=== PATIENT | female | born 1930 | race Caucasian/White ===

== ENCOUNTER 2017-08-26 21:44 | Emergency (ER) | payer MEDICARE, OTHER ==
[~2017-08-26] VITALS: Ht 154.9 cm; Wt 45.4 kg
[~2017-08-26 21:44] MED LIST: ASPIRIN325 PO; ATACAND; ATACAND8 MG PO; BENTYL 10 MG CA10 MG PO; CARDIZEM CD240 MG PO; CELEXA10 MG PO; CIPROFLOXACIN500 M3 PO; COMBIVENT INH; DIAZEPAM 2MG TAB2 MG PO; DIAZEPAM 5 MG5 M1 PO; DOLGIC PLUS TA1 EACH PO; FLAGYL 250 MG250 MG PO; FLAGYL500 MG PO; FLONASE 0.05%50 MCG NASAL; HEADACHE RELIE1 EAC4 PO; HYDROCODON-ACE1 EAC7 PO; LIPITOR 10 MG10 M1 PO; MIRALAX255 GM PO; PRAVASTATIN SOD10 MG PO; PREDNISONE 10 M10 MG PO; VALIUM5 MG PO; VANQUISH CAPLE1 EACH; VERAPAMIL ER240 MG PO; XANAX 1 MG TABLE1 MG PO
[2017-08-26 22:41] LABS: ABSOLUTE BASOPHILS 0.1 thou/uL (0.0-0.2); ABSOLUTE EOSINOPHILS 0.2 thou/uL (0.0-0.7); ABSOLUTE LYMPHOCYTES 0.8 thou/uL (0.8-5.3); ABSOLUTE MONOCYTES 0.5 thou/uL (0.0-1.2); ABSOLUTE NEUTROPHILS 3.9 thou/uL (1.6-8.1); EOSINOPHILS 4.4 %; HEMATOCRIT 37.9 % (37.0-47.0); HEMOGLOBIN 12.6 gm/dL (12.0-15.0); LYMPHOCYTES 13.8 %; MCH 28.3 pg (26.0-34.0); MCHC 33.2 g/dL (28.0-37.0); MCV 85.1 fL (80.0-100.0); MONOCYTES 9.5 %; MPV 7.7 fl. (7.2-11.1); NUCLEATED RBCS 0 /100WBC; PLATELET COUNT* 127 thou/uL (150-400); POLYS 71.3 %; RBC 4.45 mil/uL (4.20-5.00); RDW-CV 14.7 % (10.5-14.5); WBC 5.5 thou/uL (4.0-11.0)
[2017-08-26 22:50] LABS: ANION GAP 7 mmol/L (7-16); BUN 16 mg/dL (7-18); CHLORIDE 102 mmol/L (98-107); CO2 28 mmol/L (21-32); CREATININE 1.1 mg/dL (0.6-1.3); GLUCOSE 138 mg/dL (70-99); POTASSIUM 4.5 mmol/L (3.5-5.1); SODIUM 137 mmol/L (136-145)
[2017-08-26 22:57] LABS: ALBUMIN 3.9 g/dL (3.4-5.0); ALKALINE PHOSPHATASE 101 U/L (46-116); SGOT 25 U/L (15-37); SGPT 26 U/L (30-65); TOTAL BILIRUBIN 0.2 mg/dL (<0.1-1.0); TOTAL PROTEIN 6.8 g/dL (6.4-8.2); TROPONIN-I LEVEL <0.06 ng/mL (<0.06)
[2017-08-27 02:35] VITALS: BP 155/78
== END 2017-08-27 02:35 | disposition home or self-care (01) ==
LOC: M.ERS 21:44
PROVIDERS: Emergency Medicine
DX: G43.909 Migraine, unspecified, not intractable, without status migrainosus (principal); I10 Essential (primary) hypertension; J44.9 Chronic obstructive pulmonary disease, unspecified; F32.9 Major depressive disorder, single episode, unspecified; F41.9 Anxiety disorder, unspecified; Z88.1 Allergy status to other antibiotic agents; Z88.0 Allergy status to penicillin; Z88.8 Allergy status to other drugs, medicaments and biological substances; Z87.891 Personal history of nicotine dependence; Z90.49 Acquired absence of other specified parts of digestive tract

== ENCOUNTER 2017-12-08 05:19 | Emergency (ER) | payer MEDICARE, OTHER ==
[~2017-12-08] VITALS: Ht 157.5 cm; Wt 45.4 kg
[2017-12-08 05:53] LABS: HEMATOCRIT 40.1 % (37.0-47.0); HEMOGLOBIN 13.2 gm/dL (12.0-15.0); MCH 28.4 pg (26.0-34.0); MPV 7.6 fl. (7.2-11.1); NUCLEATED RBCS 0 /100WBC; PLATELET COUNT* 138 thou/uL (150-400); RBC 4.66 mil/uL (4.20-5.00); RDW-CV 15.7 % (10.5-14.5); WBC 7.6 thou/uL (4.0-11.0)
[2017-12-08 06:12] LABS: CALCIUM 9.4 mg/dL (8.5-10.1); CREATININE 0.8 mg/dL (0.6-1.3)
[2017-12-08 06:14] LABS: ABSOLUTE LYMPHOCYTES 0.5 thou/uL (0.8-5.3); ABSOLUTE NEUTROPHILS 7.1 thou/uL (1.6-8.1)
[2017-12-08 06:15] LABS: ANISOCYTOSIS 1+; PLATELET ESTIMATE DECREASED; POIKILOCYTOSIS 1+
[2017-12-08 06:17] LABS: ALBUMIN 3.9 g/dL (3.4-5.0); TOTAL BILIRUBIN 0.6 mg/dL (<0.1-1.0); TOTAL PROTEIN 7.2 g/dL (6.4-8.2)
[2017-12-08 07:00] VITALS: BP 150/84
[2017-12-08] MEDS ORDERED: ZOFRAN ODT4 MG SUBLING (07:03)
== END 2017-12-08 07:00 | disposition home or self-care (01) ==
LOC: M.ERS 05:19
PROVIDERS: Family Medicine
DX: R51 Headache (principal); R11.2 Nausea with vomiting, unspecified; I10 Essential (primary) hypertension; J44.9 Chronic obstructive pulmonary disease, unspecified; I48.91 Unspecified atrial fibrillation; F41.9 Anxiety disorder, unspecified; F32.9 Major depressive disorder, single episode, unspecified; Z90.49 Acquired absence of other specified parts of digestive tract; Z88.1 Allergy status to other antibiotic agents; Z88.5 Allergy status to narcotic agent; Z88.0 Allergy status to penicillin; Z88.8 Allergy status to other drugs, medicaments and biological substances; Z87.891 Personal history of nicotine dependence

== ENCOUNTER → 2018-01-04 | Outpatient (CLI) | payer MEDICARE, OTHER ==
[~2018-01-04] MED LIST changes: +ZOFRAN ODT4 MG SUBLING
== END ==
LOC: M.RAD 16:43
DX: I70.0 Atherosclerosis of aorta (principal); M51.34 Other intervertebral disc degeneration, thoracic region; I10 Essential (primary) hypertension; I48.91 Unspecified atrial fibrillation; J44.9 Chronic obstructive pulmonary disease, unspecified

== ENCOUNTER → 2018-06-10 | Outpatient (CLI) | payer MEDICARE, OTHER | LOC: M.RAD 12:42 | DX: N64.59 Other signs and symptoms in breast (principal); R92.8 Other abnormal and inconclusive findings on diagnostic imaging of breast ==

== ENCOUNTER → 2019-01-18 | Outpatient (CLI) | payer MEDICARE, OTHER | LOC: M.RAD 15:37 | DX: M51.34 Other intervertebral disc degeneration, thoracic region (principal); R05 Cough; F17.210 Nicotine dependence, cigarettes, uncomplicated ==

== ENCOUNTER 2019-05-24 06:52 | Inpatient (IN) | payer MEDICARE, OTHER ==
[~2019-05-24] VITALS: Ht 154.9 cm; Wt 52.1 kg
[~2019-05-24 06:52] MED LIST changes: -VANQUISH CAPLE1 EACH; +VANQUISH CAPLE1 EACH PO
[2019-05-24 06:59] VITALS: BP 177/102
[2019-05-24 07:41] LABS: ABSOLUTE EOSINOPHILS 0.2 thou/uL (0.0-0.7); ABSOLUTE LYMPHOCYTES 0.9 thou/uL (0.8-5.3); ABSOLUTE MONOCYTES 0.7 thou/uL (0.0-1.2); ABSOLUTE NEUTROPHILS 5.6 thou/uL (1.6-8.1); BASOPHILS 0.6 %; EOSINOPHILS 3.1 %; HEMATOCRIT 40.2 % (37.0-47.0); HEMOGLOBIN 13.3 gm/dL (12.0-15.0); LYMPHOCYTES 12.5 %; MCH 27.9 pg (26.0-34.0); MCHC 33.1 g/dL (28.0-37.0); MCV 84.2 fL (80.0-100.0); MONOCYTES 8.9 %; NUCLEATED RBCS 0 /100WBC; PLATELET COUNT* 150 thou/uL (150-400); POLYS 74.9 %; RBC 4.77 mil/uL (4.20-5.00); RDW-CV 14.9 % (10.5-14.5); WBC 7.4 thou/uL (4.0-11.0)
[2019-05-24 07:45] LABS: CALCIUM 8.9 mg/dL (8.5-10.1); POTASSIUM 4.1 mmol/L (3.5-5.1)
[2019-05-24 07:50] LABS: ALBUMIN 4.1 g/dL (3.4-5.0); TOTAL BILIRUBIN 0.4 mg/dL (<0.1-1.0); TOTAL PROTEIN 7.4 g/dL (6.4-8.2)
[2019-05-24 08:39] LABS: URINE BILIRUBIN NEGATIVE (Negative); URINE BLOOD 1+ (Negative); URINE CLARITY CLEAR; URINE COLOR YELLOW; URINE GLUCOSE-RANDOM NEGATIVE (Negative); URINE KETONES NEGATIVE (Negative); URINE LEUKOCYTES-REFLEX NEGATIVE (Negative); URINE NITRITE-REFLEX NEGATIVE (Negative); URINE PROTEIN NEGATIVE (Negative); URINE UROBILINOGEN 0.2 E.U./dl (0.2-1.0)
[2019-05-24 09:00] LABS: BACTERIA-REFLEX 1-9 Few /HPF (None Seen); MUCUS None Seen strn/LPF (None Seen); SQUAMOUS 0-3 Few /LPF (0-3); URINE RBC 3-10 Few /HPF (0-2); URINE WBC-REFLEX 0-5 Rare /HPF (0-5)
[2019-05-24 09:01] LABS: CRYSTALS None Seen /LPF (None Seen); HYALINE CASTS 0-3 Few /LPF (None Seen)
[2019-05-24 10:41] VITALS: BP 155/91
--- NOTE | 2019-05-24 14:39 | EKG ---
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: MS : 1930 Requested By: Za Lopez Order Number: [id number] MD: Kenan Cramer Measurements Intervals [place] Rate: 88 P: MN: QRS: -42 QRSD: 91 T: 68 QT: 345 QTc: 418 Interpretive Statements Atrial fibrillation Inferior infarct, old Compared to ECG 07/22/2015 15:01:58 Sinus rhythm no longer present Atrial premature complex(es) no longer present Myocardial infarct finding still present Electronically Signed On 05-24-2019 14:38:24 MEDICAL BILLING SERVICE by Kenan Cramer [email or web address] <ELECTRONICALLY SIGNED> By: Kenan Cramer MD, FACC 05/24/19 1438 0911 Kenan Cramer MD, [facility] /EPI
[2019-05-24] MEDS ORDERED: NORCO 5-325 TA1 EAC1 PO (15:37)
[2019-05-24 16:40] VITALS: BP 160/90
--- NOTE | 2019-05-24 17:05 | NUR ---
ASSESSMENT COMPLETE. PT ALERT AND ORIENTED X4. PT ADMITTED WITH COLITIS. GI CONSULT. IV ROCEPHIN AND FLAGYL GIVEN. IV FLUIDS INFUSING. NORCO GIVEN ONCE FOR PAIN. PT IS ON ROOM AIR, VSS. PT IS FALL RISK, BED ALARM ON. UP ONE ASSIST TO BATHROOM. SEE ASSESSMENT AND VITALS FOR OTHER DETAILS. CALL LIGHT WITHIN REACH, WILL CONTINUE PLAN OF CARE
[2019-05-24 20:18] VITALS: BP 144/85
[2019-05-24 21:30] VITALS: BP 137/81
[2019-05-24 23:56] VITALS: BP 118/68
--- NOTE | 2019-05-25 00:01 | NUR ---
ASSUMED CARE OF PATIENT AT BEGINNING OF SHIFT. WENT IN TO GET A SET OF VITALS PATIENT HEART RATE WAS JUMPING ON ALL AROUND ON THE PULSE OX AND GOING UP TO 130'S AND 140'S. EKG WAS DONE AND SHOWED AFIB WITH HR OF 131. DOCTOR VALENTIN WAS PAGED AND ORDERS WERE RECIEVED TO TRANSFER TO TELE. REPORT WAS GIVEN TO DIVINA FULLER. PATIENT WAS TRANSERED DOWN BY BED WITH HER BELONGINGS AT ABOUT 2100.
[2019-05-25 04:09] VITALS: BP 136/73
--- NOTE | 2019-05-25 05:28 | NUR ---
RECEIVED REPORT FROM KYRA MURCIA. PT TRANSFERRED TO 206. PT A&OX4. VSS. PHYSICAL ASSESSMENT COMPLETED AND CHARTED. O2 SAT 87-90%- HOOKED TO O2 VIA NC AT 2L. PT TRACING AFIB 60-90'S. PT UPSTANDBY TO RESTROOM. PT COMPLAINED OF SLIGHT HEADACHE BUT REFUSED PAIN MEDS. ANXIETY MEDICATION GIVEN. PT ABLE TO SLEEP WELL ON BED. CALL LIGHT WITHIN REACH.
[2019-05-25 05:37] LABS: ABSOLUTE EOSINOPHILS 0.2 thou/uL (0.0-0.7); ABSOLUTE LYMPHOCYTES 0.9 thou/uL (0.8-5.3); ABSOLUTE MONOCYTES 0.7 thou/uL (0.0-1.2); ABSOLUTE NEUTROPHILS 4.3 thou/uL (1.6-8.1); BASOPHILS 0.8 %; EOSINOPHILS 2.8 %; HEMOGLOBIN 10.8 gm/dL (12.0-15.0); LYMPHOCYTES 15.5 %; MCH 28.4 pg (26.0-34.0); MCHC 33.8 g/dL (28.0-37.0); MCV 84.1 fL (80.0-100.0); MONOCYTES 10.8 %; MPV 8.5 fl. (7.2-11.1); NUCLEATED RBCS 0 /100WBC; PLATELET COUNT* 118 thou/uL (150-400); POLYS 70.1 %; RBC 3.81 mil/uL (4.20-5.00); RDW-CV 14.5 % (10.5-14.5); WBC 6.1 thou/uL (4.0-11.0)
[2019-05-25 06:02] LABS: CALCIUM 7.6 mg/dL (8.5-10.1); CREATININE 0.8 mg/dL (0.6-1.3); POTASSIUM 3.9 mmol/L (3.5-5.1); TOTAL BILIRUBIN 0.4 mg/dL (<0.1-1.0); TOTAL PROTEIN 5.6 g/dL (6.4-8.2)
[2019-05-25 08:00] VITALS: BP 113/61
[2019-05-25 12:00] VITALS: BP 115/58
--- NOTE | 2019-05-25 15:01 | EKG ---
[place] [address] ELECTROCARDIOGRAM REPORT Name: JEAN MALHOTRA Room: [address] ADM IN .R.#: [id number] Admission: 05/24/19 Attend Phys: Tasha Fleming Discharge: Date of : 30 Report #: [id number] THIS REPORT FOR: //name// 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 : 1930 Requested By: Thai Jimenes Order Number: [id number] MD: Brian Vinson Measurements Intervals [place] Rate: 131 P: CT: QRS: -52 QRSD: 84 T: 67 QT: 321 QTc: 474 Interpretive Statements Atrial fibrillation RSR' in V1 or V2, right VCD or RVH Inferior infarct, old possible Compared to ECG 05/24/2019 09:11:45 RSR' in V1 or V2 now present Myocardial infarct finding still present Electronically Signed On 05-25-2019 15:01:16 CARDIOLOGY PHYSICIAN by Brian Vinson [email or web address] <ELECTRONICALLY SIGNED> By: Brian Vinson MD, [facility] 05/25/19 1501 20 20 Brian Vinson MD, [facility] /EPI
--- NOTE | 2019-05-25 15:06 | NUR ---
Pt sound asleep when CM went to assess, will f/u later
[2019-05-25 16:00] VITALS: BP 120/59
--- NOTE | 2019-05-25 19:34 | NUR ---
VSS, CONTROLLED AFIB ON TELE, A&OX4, BASELINE ANXIETY, NC@0.5L, SBA, HOURLY ROUNDING PERFORMED, POSSESSIONS AND CALL LIGHT WITHIN REACH. CLEAR LIQUID DIET
[2019-05-25 20:00] VITALS: BP 145/78
[2019-05-25 23:34] VITALS: BP 120/63
[2019-05-26 04:03] VITALS: BP 135/74
[2019-05-26 04:31] LABS: ABSOLUTE BASOPHILS 0.1 thou/uL (0.0-0.2); ABSOLUTE EOSINOPHILS 0.2 thou/uL (0.0-0.7); ABSOLUTE LYMPHOCYTES 0.7 thou/uL (0.8-5.3); ABSOLUTE MONOCYTES 0.6 thou/uL (0.0-1.2); ABSOLUTE NEUTROPHILS 4.3 thou/uL (1.6-8.1); BASOPHILS 0.9 %; EOSINOPHILS 3.6 %; HEMATOCRIT 30.4 % (37.0-47.0); HEMOGLOBIN 10.2 gm/dL (12.0-15.0); LYMPHOCYTES 11.6 %; MCH 28.2 pg (26.0-34.0); MCHC 33.4 g/dL (28.0-37.0); MCV 84.4 fL (80.0-100.0); MONOCYTES 10.5 %; MPV 8.2 fl. (7.2-11.1); NUCLEATED RBCS 0 /100WBC; PLATELET COUNT* 103 thou/uL (150-400); POLYS 73.4 %; RDW-CV 14.9 % (10.5-14.5); WBC 5.9 thou/uL (4.0-11.0)
[2019-05-26 04:49] LABS: CALCIUM 7.6 mg/dL (8.5-10.1); CREATININE 0.8 mg/dL (0.6-1.3); POTASSIUM 3.7 mmol/L (3.5-5.1)
--- NOTE | 2019-05-26 05:49 | NUR ---
ASSUMED CARE OF PT AFTER REPORT AT 1930. PT A&OX4. VSS. PHYSICAL ASSESSMENT COMPLETED AND CHARTED.PT O2 SAT 87-89%-INCREASED O2 TO 2L NC. PT TRACING AFIB ON TELE. PT UPSTANDBY TO RESTROOM. PT DENIES PAIN. PT REFUSED TRAZODONE EVEN AFTER EDUCATION AND CARE NOTES WERE GIVEN. CALL LIGHT WITHIN REACH.
[2019-05-26 08:00] VITALS: BP 146/78
--- NOTE | 2019-05-26 11:13 | NUR ---
Nutrition: Pt admit with recent onset abd pain, rectal bleeding. Hx of IBD which limits po intake and activites. Pt is underweight w/ BMI of 17. Pt tolerating clear liquids, receiving Ensure clear. Albumin 3.0, was WNL initially. Steriods and other meds reviewed. Plan for flex sig in am. Assess at mild nutrition risk; RD to follow up 05/31.
--- NOTE | 2019-05-26 12:55 | CON ---
[address] [address] CONSULTATION Name: JEAN MALHOTRA Room: [address] IN .R.#: [id number] Admission: 05/24/19 Attend Phys: Tasha Fleming Discharge: Date of : 30 Report #: [id number] THIS REPORT FOR: //name// CC: Carmita Jimenes DICTATED BY: Renetta Rangel [facility] DATE OF SERVICE: 05/24/2019 Please note at the time of this dictation, the patient was seen and physically examined by myself. REASON FOR CONSULTATION: Abdominal pain, rectal bleeding and some diarrhea. HISTORY OF PRESENT ILLNESS: This is an 89-year-old female who states she started having abrupt onset of abdominal pain with rectal bleeding yesterday, with a lot of cramping that got progressively worse. 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 She has had another bout prior to this. The patient states her bowels normally move every day. She states soft and formed and once a while, she will have some issues or she does not go and she will take some MiraLax to help her go. She now is complaining that she is having some diarrhea. She did have an EGD back in 2015 that was completely normal. ALLERGIES: PENICILLIN, QUINOLONES, CLINDAMYCIN, CIPROFLOXACIN, NABUMETONE, AND MOXIFLOXACIN. MEDICATIONS: From home include Combivent, Vanquish tablet, Atacand, Cardizem, Dologesic plus tablet, and Valium. PAST MEDICAL HISTORY: Hypertension, COPD, TIA, history of a cerebral aneurysm, atrial fibrillation, history of vertigo, history of colitis, anxiety and depression. PAST SURGICAL HISTORY: Knee surgery, cholecystectomy. FAMILY HISTORY: Noncontributory. SOCIAL HISTORY: Past history of tobacco use. Denies any alcohol or illegal drug use. REVIEW OF SYSTEMS: Twelve-point review [place] [address] CONSULTATION Name: JEAN MALHOTRA Room: [address] IN [facility]#: [id number] Admission: 05/24/19 Attend Phys: Tasha Fleming Discharge: Date of : 30 Report #: [id number] except what is mentioned in the HPI. PHYSICAL EXAMINATION: VITAL SIGNS: Temperature 36.8, pulse 100, respirations 16, blood pressure 155/91. HEART: Regular rate and rhythm. LUNGS: Clear. ABDOMEN: Soft, positive bowel sounds in all 4 quadrants with some slight abdominal pain noted on the left side. LABORATORY DATA: Hemoglobin 13.3, white count 7.4, platelets 150. GFR is 52. CT showed severe segmental colonic wall thickening from the proximal descending to sigmoid. IMPRESSION: 1. Abdominal pain, improved. 2. Constipation. 3. Bright red blood, resolved. 4. Abnormal CT. PLAN: 1. Give her Dulcolax tablets. 2. Senna b.i.d. 3. Symptoms have improved since having a BM. 4. Clear liquids. 5. We will consider a flexible sigmoidoscopy after Dr. Castanon sees the patient later today. 6. The patient will need to be on a better bowel regimen upon discharge. 7. Continue antibiotics. Thank you for allowing us to participate in this patient's care. Please do not hesitate to call with any questions in regard to this consult. <ELECTRONICALLY SIGNED> By: Drew Castanon MD 05/26/19 1255 1156 1430Drew Castanon MD /nt
[2019-05-26 12:58] VITALS: BP 155/85
--- NOTE | 2019-05-26 15:00 | NUR ---
Pt is A&O. Resides at home alone. Independent, dtr does a deep clean every 3-4 weeks, Pt continues to drive short distances. No DME. No home o2. No hx of HH or SNF. Pt to have flex sig tomorrow. Goal is home at dc, no needs anticipated.
[2019-05-26 16:22] VITALS: BP 158/71
--- NOTE | 2019-05-26 20:17 | NUR ---
VSS, AFIB ON TELE, A&OX4, PATIENT VERY ANXIOUS. NC@2L, UP WITH ASSIST, NPO AT MIDNIGHT. HOURLY ROUNDING PERFORMED, POSSESIONS AND CALL LIGHT WITHIN REACH.
[2019-05-26 21:30] VITALS: BP 157/84
[2019-05-27 00:11] VITALS: BP 141/69
[2019-05-27 04:09] VITALS: BP 101/74
[2019-05-27 04:42] LABS: ABSOLUTE LYMPHOCYTES 0.6 thou/uL (0.8-5.3); BASOPHILS 0.1 %; HEMATOCRIT 35.6 % (37.0-47.0); HEMOGLOBIN 11.9 gm/dL (12.0-15.0); LYMPHOCYTES 6.7 %; MCH 28.3 pg (26.0-34.0); MCHC 33.5 g/dL (28.0-37.0); MCV 84.7 fL (80.0-100.0); MPV 7.7 fl. (7.2-11.1); NUCLEATED RBCS 0 /100WBC; PLATELET COUNT* 144 thou/uL (150-400); POLYS 83.2 %; RBC 4.21 mil/uL (4.20-5.00); RDW-CV 14.8 % (10.5-14.5); WBC 9.6 thou/uL (4.0-11.0)
[2019-05-27 04:54] LABS: ALBUMIN 3.4 g/dL (3.4-5.0); CALCIUM 8.5 mg/dL (8.5-10.1); POTASSIUM 4.2 mmol/L (3.5-5.1); TOTAL BILIRUBIN 0.4 mg/dL (<0.1-1.0); TOTAL PROTEIN 6.2 g/dL (6.4-8.2)
--- NOTE | 2019-05-27 05:00 | NUR ---
RECEIVED REPORT FROM DIVINA ZUNIGA AT 0230. PT RESTING WITH EYES CLOSED. AFIB ON SCIENTIFIC INFORMATICS LEADER. VOICES NO CONCERNS THIS SHIFT. CLEAR BM THIS AM. HOURLY ROUNDING COMPLETED. CALL LIGHT WITHIN REACH. NPO FOR PROCEDURE.
--- NOTE | 2019-05-27 11:20 | NUR ---
Possible dc to home today post flex sig. Spoke with Pt and dtr, Pt in agreement with HH and want to use [facility] to fax referral once available. Following. Nitin p:[phone] f:[phone]
[2019-05-27] MEDS ORDERED: FLAGYL500 M1 PO (13:46)
[2019-05-27] MEDS ORDERED: SENNA-TIME S T1 EACH PO (13:46)
[2019-05-27 14:35] VITALS: BP 101/74
--- NOTE | 2019-05-27 20:32 | NUR ---
VSS, AFIB ON TELE, A&OX4, SBA, NC@2L, HOURLY ROUNDING PERFORMED, POSSESSIONS AND CALL LIGHT WITHIN REACH. POST COLONOSCOPY REC DISCHARGE ORDERS, REVIEWED WITH PATIENT AND DAUGHTER, REMOVED IV WITHOUT COMPLICATION, TELE MONITOR REMOVED. PATIENT TAKEN BY WHEELCHAIR TO FRONT DOOR AND PICKED UP BY DAUGHTER IN FAMILY CAR.
--- NOTE | 2019-05-31 16:06 | PATH ---
[facility] [address] [place] [address] PATHOLOGY RPT PROCEDURE Name: YANE MALHOTRA Room: [address] IN M.R.#: [id number] Admission: 05/24/19 Date of : 30 Discharge: 05/27/19 Report #: [id number] Path Case #: [id number] [facility] Accession Number: [id number] . 01 Material submitted: . colon - RANDOM COLON . 01 Clinical history: . R/O colitis . 02 Diagnosis: Random colon biopsy: - Focal fresh hemorrhage in otherwise normal colonic mucosa. . (SUZETTE:mml; 05/31/2019) [facility] 05/31/2019 1020 Local . 02 Electronically signed: . Gregory Leonard MD, Pathologist NPI- [id number] . 01 Gross description: . The specimen is received in formalin, labeled "Yane Lewis, random colon biopsy". Received are seven segments of pale madrid soft tissue ranging in size from 0.3 to 0.6 cm in maximum dimensions. The specimen is submitted entirely in cassette A1. (CAA; 05/30/2019) QAC/QAC 05/30/2019 1200 Local . 02 Pathologist provided ICD-10: J18.9, J96.01 . 02 CPT . 056512 Specimen Comment: A courtesy copy of this report has been sent to [phone] Specimen Comment: Report sent to Performed at: [address] [facility], [place], [place] [id number] MD Sherman Artis MD Phone: [phone] Performed at: [address] [address] [address], [place], [place] [id number] MD Gregory Leonard MD Phone: [phone]
== END 2019-05-27 18:50 | disposition home health service (06) | DRG 372 ==
LOC: M.ERS 06:52 → M.TBA-ER 10:06 → M.3W 10:06 → M.2W 10:06 → M.3W 11:00 → M.2W 21:37
PROVIDERS: Personal Emergency Response Attendant; ADMIT Internal Medicine
PROC: 0DBN8ZX Excision of Sigmoid Colon, Via Natural or Artificial Opening Endoscopic, Diagnostic (ICD-10-PCS; principal; 2019-05-27)
DX: A04.9 Bacterial intestinal infection, unspecified (principal); K92.1 Melena; E44.1 Mild protein-calorie malnutrition; K55.9 Vascular disorder of intestine, unspecified; K64.8 Other hemorrhoids; K59.00 Constipation, unspecified; K63.89 Other specified diseases of intestine; I10 Essential (primary) hypertension; J44.9 Chronic obstructive pulmonary disease, unspecified; I67.1 Cerebral aneurysm, nonruptured; I48.91 Unspecified atrial fibrillation; F41.9 Anxiety disorder, unspecified; F32.9 Major depressive disorder, single episode, unspecified; Z90.49 Acquired absence of other specified parts of digestive tract; Z79.891 Long term (current) use of opiate analgesic; Z79.899 Other long term (current) drug therapy; Z79.01 Long term (current) use of anticoagulants; Z90.89 Acquired absence of other organs; Z88.1 Allergy status to other antibiotic agents; Z88.0 Allergy status to penicillin; Z88.8 Allergy status to other drugs, medicaments and biological substances; Z87.891 Personal history of nicotine dependence; Z68.21 Body mass index [BMI] 21.0-21.9, adult

== ENCOUNTER 2019-05-29 06:02 | Inpatient (IN) | payer MEDICARE, OTHER ==
[~2019-05-29] VITALS: Ht 152.4 cm; Wt 48.7 kg
[~2019-05-29 06:02] MED LIST changes: +FLAGYL500 M1 PO; +NORCO 5-325 TA1 EAC1 PO; +SENNA-TIME S T1 EACH PO
[2019-05-29 06:03] VITALS: BP 159/93
[2019-05-29 06:34] LABS: HEMATOCRIT 37.8 % (37.0-47.0); HEMOGLOBIN 12.7 gm/dL (12.0-15.0); MCH 28.1 pg (26.0-34.0); MCHC 33.5 g/dL (28.0-37.0); MCV 83.8 fL (80.0-100.0); NUCLEATED RBCS 0 /100WBC; PLATELET COUNT* 154 thou/uL (150-400); RBC 4.52 mil/uL (4.20-5.00); WBC 14.2 thou/uL (4.0-11.0)
[2019-05-29 06:39] LABS: CALCIUM 8.1 mg/dL (8.5-10.1); CREATININE 0.8 mg/dL (0.6-1.3); POTASSIUM 3.1 mmol/L (3.5-5.1)
[2019-05-29 06:47] LABS: ALBUMIN 3.8 g/dL (3.4-5.0); MAGNESIUM 1.6 mg/dL (1.8-2.4); TOTAL BILIRUBIN 0.5 mg/dL (<0.1-1.0); TOTAL PROTEIN 6.8 g/dL (6.4-8.2)
[2019-05-29 06:58] LABS: ABSOLUTE MONOCYTES 0.4 thou/uL (0.0-1.2); ABSOLUTE NEUTROPHILS 12.8 thou/uL (1.6-8.1); PLATELET ESTIMATE ADEQUATE
[2019-05-29 07:04] LABS: BE 0.3 mmol/L (-2 to +3); PCO2 37.6 mmHg (35.0-45.0); PO2 63.9 mmHg (75.0-100.0)
[2019-05-29 07:30] LABS: INFLUENZA A ANTIGEN Negative (Negative); INFLUENZA B ANTIGEN Negative (Negative)
[2019-05-29 08:11] LABS: URINE BILIRUBIN NEGATIVE (Negative); URINE BLOOD 2+ (Negative); URINE CLARITY CLEAR; URINE COLOR YELLOW; URINE GLUCOSE-RANDOM NEGATIVE (Negative); URINE KETONES 1+ (Negative); URINE LEUKOCYTES-REFLEX NEGATIVE (Negative); URINE NITRITE-REFLEX NEGATIVE (Negative); URINE PROTEIN 1+ (Negative); URINE UROBILINOGEN 0.2 E.U./dl (0.2-1.0)
[2019-05-29 08:23] LABS: BACTERIA-REFLEX 1-9 Few /HPF (None Seen); CRYSTALS None Seen /LPF (None Seen); HYALINE CASTS 0-3 Few /LPF (None Seen); MUCUS None Seen strn/LPF (None Seen); SQUAMOUS 0-3 Few /LPF (0-3); URINE RBC 3-10 Few /HPF (0-2); URINE WBC-REFLEX 0-5 Rare /HPF (0-5)
[2019-05-29 08:32] VITALS: BP 127/85
[2019-05-29 08:50] VITALS: BP 142/88
[2019-05-29 11:52] LABS: CALCIUM 7.4 mg/dL (8.5-10.1); CREATININE 0.7 mg/dL (0.6-1.3); MAGNESIUM 1.6 mg/dL (1.8-2.4); POTASSIUM 3.1 mmol/L (3.5-5.1)
[2019-05-29 12:33] VITALS: BP 131/72
--- NOTE | 2019-05-29 14:02 | EKG ---
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: : 1930 Requested By: Za Lopez Order Number: [id number] MD: Brian Vinson Measurements Intervals [place] Rate: 120 P: [place]: QRS: 18 QRSD: 88 T: 12 QT: 312 QTc: 441 Interpretive Statements Atrial fibrillation rare pvc Probable anterior infarct, age indeterminate Compared to ECG 05/24/2019 20:21:24 Right ventricular hypertrophy no longer present Myocardial infarct finding still present Electronically Signed On 05-29-2019 14:01:16 SOCIALLY RESPONSIBLE INVESTMENT ADVISER by Brian Vinson [email or web address] <ELECTRONICALLY SIGNED> By: Brian Vinson MD, [facility] 05/29/19 1401 0609 0609 Brian Vinson MD, [facility] /EPI
[2019-05-29 15:05] LABS: CALCIUM 7.3 mg/dL (8.5-10.1); CREATININE 0.7 mg/dL (0.6-1.3); POTASSIUM 3.1 mmol/L (3.5-5.1)
[2019-05-29 17:04] VITALS: BP 142/69
[2019-05-29 19:50] VITALS: BP 130/73
[2019-05-29 21:31] LABS: MAGNESIUM 1.5 mg/dL (1.8-2.4); POTASSIUM 3.6 mmol/L (3.5-5.1)
[2019-05-30] VITALS: BP 134/84
[2019-05-30 03:38] VITALS: BP 161/96
[2019-05-30 06:00] LABS: HEMATOCRIT 31.5 % (37.0-47.0); MCHC 34.8 g/dL (28.0-37.0); MCV 83.5 fL (80.0-100.0); MPV 8.6 fl. (7.2-11.1); RBC 3.78 mil/uL (4.20-5.00); RDW-CV 14.4 % (10.5-14.5); WBC 7.2 thou/uL (4.0-11.0)
[2019-05-30 06:14] LABS: ALBUMIN 3.1 g/dL (3.4-5.0); CALCIUM 7.4 mg/dL (8.5-10.1); CREATININE 0.8 mg/dL (0.6-1.3); MAGNESIUM 2.3 mg/dL (1.8-2.4); POTASSIUM 3.6 mmol/L (3.5-5.1); TOTAL BILIRUBIN 0.5 mg/dL (<0.1-1.0); TOTAL PROTEIN 5.7 g/dL (6.4-8.2)
--- NOTE | 2019-05-30 07:04 | NUR ---
PT CARE ASSUMED AT 1930. SAT MAINTAINED IN O2. ALERT AND ORIENTED X4. CALL LIGHT WITHIN REACH AND BED IN LOW POSITION. C/O PAIN, MEDICATION GIVEN PER EMAR. HOURLY ROUNDING DONE FOR PT SAFETY.
[2019-05-30 08:00] VITALS: BP 142/95
[2019-05-30 12:00] VITALS: BP 151/104
--- NOTE | 2019-05-30 13:24 | NUR ---
Pt is A&O. Known to this CM from hospital stay last week. Pt dc to home with [facility] last Thursday, CM updated [facility] on re-admit. Pt resides at home alone. Independent. No hx of SNF. Goal is home at dc. Following.
--- NOTE | 2019-05-30 15:20 | 2DMMODE ---
[place] [address] 2 D/M-MODE ECHOCARDIOGRAM Name: JEAN MALHOTRA Room: [facility] ADM IN [facility]#: [id number] Admission: 05/29/19 Attend Phys: Marianne Dennison, Discharge: Date of : 30 Date of Service: 05/30/19 1519 Report #: [id number] THIS REPORT FOR: //name// APPROVED REPORT Study performed: 05/30/2019 11:14:38 EXAM: Comprehensive 2D, Doppler, and color-flow Echocardiogram Patient Location: In-Patient Room #: [facility] BSA: 1.33 HR: 95 bpm BP: 142/95 mmHg Other Information Study Quality: Good Indications COPD R/O CHF 2D Dimensions IVSd: 6.73 (7-11mm) LVOT Diam: 19.48 (18-24mm) LVDd: 32.24 mm PWd: 5.49 (7-11mm) Ascending Ao: 25.77 (22-36mm) LVDs: 18.31 (25-40mm) Aortic Root: 21.13 mm Volumes Left Atrial Volume (Systole) LA ESV Index: 34.30 mL/m2 Aortic Valve AoV Peak Chaz.: 0.95 m/s AO Peak Gr.: 3.64 mmHg LVOT Max P.27 mmHg AO Mean Gr.: 1.88 mmHg LVOT Mean P.41 mmHg LVOT Max V: 0.90 m/s AO V2 VTI: 14.75 cm LVOT Mean V: 0.53 m/s SHIRA (VTI): 3.35 cm2 LVOT V1 VTI: 16.57 cm Mitral Valve E/A Ratio: 4.11 MV Decel. Time: 122.24 ms MV E Max Chaz.: 0.94 m/[place] [address] 2 D/M-MODE ECHOCARDIOGRAM Name: JEAN MALHOTRA Room: [address] IN ..#: [id number] Admission: 05/29/19 Attend Phys: Marianne Dennison, Discharge: Date of : 30 Date of Service: 05/30/19 1519 Report #: [id number] MV PHT: 35.45 ms MVA (PHT): 6.21 cm2 TDI E/Lateral E': 9.40 E/Medial E': 11.75 Medial E' Chaz.: 0.08 m/s Lateral E' Chaz.: 0.10 m/s Pulmonary Valve PV Peak Chaz.: 0.71 m/s PV Peak Gr.: 2.03 mmHg Tricuspid Valve RAP Estimate: 5.00 mmHg TR Peak Gr.: 27.62 mmHg RVSP: 32.62 mmHg PA Pressure: 32.62 mmHg Left Ventricle The left ventricle is normal size. There is normal LV segmental wall motion. There is normal left ventricular wall thickness. Left ventricular systolic function is normal. The left ventricular ejection fraction is within the normal range. LVEF is 65-70%. This study is not technically sufficient to allow evaluation of the LV diastolic function due to atrial fibrillation. Right Ventricle The right ventricle is normal size. The right ventricular systolic function is normal. Atria Left atrium is mildly dilated. The right atrium size is normal. Aortic Valve The Aortic valve is sclerotic. No aortic regurgitation is present. There is no aortic valvular stenosis. Mitral Valve The mitral valve is normal in structure. Moderate mitral regurgitation. No evidence of mitral valve stenosis. Tricuspid Valve The tricuspid valve is normal in structure. Mild tricuspid regurgitation. estimated pa pressure 35 mm Hg Pulmonic Valve Pulmonic valve is not well visualized. There [place] [address] 2 D/M-MODE ECHOCARDIOGRAM Name: JEAN MALHOTRA Room: [address] IN [facility]#: [id number] Admission: 05/29/19 Attend Phys: Marianne Dennison, Discharge: Date of : 30 Date of Service: 05/30/19 1519 Report #: [id number] regurgitation. Great Vessels The aortic root is normal in size. IVC is normal in size and collapses >50% with inspiration. Pericardium There is no pericardial effusion. Small left pleural effusion. <Conclusion> LVEF is 65-70%. Left atrium is mildly dilated. Moderate mitral regurgitation. <ELECTRONICALLY SIGNED> By: Trevor Zhang MD, FACC 05/30/19 [phone] Trevor Zhang MD, FACC /INF
--- NOTE | 2019-05-30 15:28 | NUR ---
Nutrition: pt risk for wt loss of 7 lb from last weeks admit and decreased po intake related to chronic IBD. Question accuracy of prior wt's 90-100# (appear to be stated wt's) vs current wt of 107 lb and last week at 114 lb. Albumin 3.1 was 3.8 initally. Meds reviewed. Pt was with other staff at visits; pt was on a supplements last week; requested supplement be low-sugar. No intake records. Assess at mild nutrition risk. Will order Glucerna BID. RD to follow up on intake and further needs 05/31/19.
[2019-05-30 16:00] VITALS: BP 123/73
--- NOTE | 2019-05-30 19:25 | NUR ---
ASSUSMED CARE OF PT APPROX 0730. REASSESSMENT COMPLETED CHARTED. MEDICATIONS GIVEN CHARTED. DISCUSSED CARE WITH PT AND DAUGHTER, VERBALIZED UNDERSTANDING. PT UP TO BEDSIDE CAMODE WITH STAND BY ASSISTANCE. PT CALLS OUT FOR NEEDS. SAFTEY PRECAUTIONS UTILIZED AND HOURLY ROUNDED.
[2019-05-30 20:00] VITALS: BP 116/60
[2019-05-31 00:54] VITALS: BP 123/68
[2019-05-31 04:00] VITALS: BP 140/74
--- NOTE | 2019-05-31 05:26 | NUR ---
PT CARE ASSUMED AT 1930. SAT MAINTAINED IN 02. SOB WITH EXERTION. C/O PAIN, MEDICATION GIVEN PER EMAR. ALERT AND ORIENTED X4. CALL LIGHT WITHIN REACH AND BED IN LOW POSITION. HOURLY ROUNDING DONE FOR PT SAFETY.
--- NOTE | 2019-05-31 07:15 | NUR ---
CHANGE OF SHIFT BEDSIDE REPORT GIVEN PATIENT SEEN AT BEDSIDE, IN BED ASLEEP ASSUMED PATIENT CARE
[2019-05-31 08:00] VITALS: BP 122/77
--- NOTE | 2019-05-31 09:35 | NUR ---
MET WITH PT AND DTR BRIDGER IN THE ROOM. PT STATES SHE WOULD LIKE TO DO SNU UNTIL SHE GETS HER STRENGTH BACK THEN SHE WOULD LIKE TO GO TO ASSISTED LIVING. SHE AND DTR HAVE STARTED TO LOOK AT A FEW ASSISTED LIVING FACILITIES BUT ARE OVERWHELMED. WILL GIVE INFO RE ASSISTED LIVING FACILITIES IN THE AREA.STATES THE ONLY PREFERENCE THAT SHE HAS FOR SNU IS THERE CANNOT BE AN ELEVATOR SHE HAS AN ELEVATOR PHOBIA AND SHE HAS TO BE ABLE TO CHOOSE HER FOOD SHE EATS A SPECIAL DIET. DTR WOULD LIKE PT TO REMAIN CLOSE. WILL FAX PAPERWORK TO [facility] AND [facility]
[2019-05-31 11:52] LABS: ABSOLUTE EOSINOPHILS 0.3 thou/uL (0.0-0.7); ABSOLUTE LYMPHOCYTES 1.1 thou/uL (0.8-5.3); ABSOLUTE MONOCYTES 0.7 thou/uL (0.0-1.2); ABSOLUTE NEUTROPHILS 6.3 thou/uL (1.6-8.1); BASOPHILS 0.5 %; EOSINOPHILS 3.7 %; HEMATOCRIT 31.8 % (37.0-47.0); HEMOGLOBIN 10.5 gm/dL (12.0-15.0); LYMPHOCYTES 13.2 %; MCH 28.3 pg (26.0-34.0); MCV 85.6 fL (80.0-100.0); MONOCYTES 8.3 %; NUCLEATED RBCS 0 /100WBC; PLATELET COUNT* 122 thou/uL (150-400); POLYS 74.3 %; RBC 3.71 mil/uL (4.20-5.00); RDW-CV 14.9 % (10.5-14.5); WBC 8.4 thou/uL (4.0-11.0)
[2019-05-31 12:10] LABS: CALCIUM 7.9 mg/dL (8.5-10.1); CREATININE 0.8 mg/dL (0.6-1.3); POTASSIUM 3.4 mmol/L (3.5-5.1)
--- NOTE | 2019-05-31 12:15 | NUR ---
[facility] ACCEPTED PT FOR ADMISSION TOMORROW. WILL NEED PT/OT NOTES WHEN AVAILABLE. CM TO CALL ELIJAH AT [facility] WHEN DC ORDERS RECEIVED TO FACILITATE TRANSPORT. DTR AND PT AWARE
--- NOTE | 2019-05-31 12:20 | NUR ---
Nutrition: follow up note. Pt "eats a special diet" at home. Glucerna is ordered for added oral intake. BG is WNL, alb 3.1. Wt stable at 107#. Continue at mild risk. Will follow up per protocol.
[2019-05-31 17:41] VITALS: BP 124/71
[2019-05-31 19:50] VITALS: BP 146/88
[2019-06-01] VITALS: BP 132/63
[2019-06-01 04:00] VITALS: BP 141/84
--- NOTE | 2019-06-01 05:43 | NUR ---
PT CARE ASSUMED AT 1930. SAT MAINTAINED IN O2. ALERT AND ORIENTED X4. C/O PAIN, MEDICATION GIVEN PER EMAR. SOB WITH EXERTION. CALL LIGHT WITHIN REACH AND BED IN LOW POSITION. HOURLY ROUNDING DONE FOR PT SAFETY.
[2019-06-01 08:00] VITALS: BP 141/84
[2019-06-01 11:36] LABS: CALCIUM 8.1 mg/dL (8.5-10.1); CREATININE 0.9 mg/dL (0.6-1.3); POTASSIUM 3.3 mmol/L (3.5-5.1)
[2019-06-01 12:00] VITALS: BP 143/73
--- NOTE | 2019-06-01 12:39 | NUR ---
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 Faxed dc orders. Chart copied. Nurse report number is [id number]. Updated Pt and dtr in room.
[2019-06-01] MEDS ORDERED: AZITHROMYCIN 2250 MG PO (12:46)
[2019-06-01] MEDS ORDERED: SALINE NASAL SP88 ML NARES (12:51)
--- NOTE | 2019-06-01 13:13 | CON ---
[address] [address] CONSULTATION Name: JEAN MALHOTRA Room: [address] IN .R.#: [id number] Admission: 05/29/19 Attend Phys: Marianne Dennison MD Discharge: Date of : 30 Report #: [id number] THIS REPORT FOR: //name// CC: Carmita Dennison DATE OF SERVICE: 05/29/2019 CARDIOLOGY CONSULTATION HISTORY OF PRESENT ILLNESS: The patient is an 89-year-old female with a history of severe COPD and atrial fibrillation, which has occurred paroxysmally in that context. She was recently hospitalized with ischemic colitis. Shortly after discharge, she developed recurrent dyspnea, was rehospitalized with respiratory failure. In that setting, she demonstrated atrial fibrillation with tachycardic response. In the context of diltiazem, the rate is diminished to approximately 90 and her dyspnea has improved on inhaled bronchodilators and she is also receiving antibiotics. She denies abdominal discomfort at this time, though it did precipitate on most recent admission. Chronic meds have included pain medicines, candesartan, diltiazem, albuterol, metronidazole, and stool softener. The patient has a history of cerebral aneurysm and has not been anticoagulated in that context. PHYSICAL EXAMINATION: GENERAL: Reveals a mildly distressed elderly female, somewhat dyspneic and tachypneic. VITAL SIGNS: Blood pressure is 120/70, pulse rate is 92 and irregularly irregular, and respirations are 22 per minute. NECK: Jugular venous pressure is difficult to ascertain. CHEST: Reveals decreased breath sounds diffusely with a prolonged expiratory phase and rare wheeze. CARDIAC: Reveals an irregularly irregular rhythm at a normal rate. ABDOMEN: Soft. EXTREMITIES: Satisfactorily perfused with trace of edema. IMPRESSION: 1. Acute on chronic respiratory insufficiency. 2. Chronic obstructive pulmonary disease. 3. Paroxysmal atrial fibrillation on this occasion with tachycardic response. 4. [place] [address] CONSULTATION Name: JEAN MALHOTRA Lalita Room: [address] IN [facility]#: [id number] Admission: 05/29/19 Attend Phys: Marianne Dennison MD Discharge: Date of : 30 Report #: [id number] RECOMMENDATIONS: 1. Agree with diltiazem for rate control. 2. I would not anticoagulate in the context of the aforementioned contraindication. Thank you for allowing us to see the patient in cardiovascular assessment. <ELECTRONICALLY SIGNED> By: Brian Vinson MD, FACC 06/01/19 1313 1341 [id number] Vinson MD, FACC /nt
--- NOTE | 2019-06-01 15:49 | NUR ---
ASSUMED PT CARE AT 0730. ASSESSMENT COMPLETED CHARTED. ABLE TO MAKE NEEDS KNOWN. RESTING IN BED MOST OF THE DAY. IV ABT FINISHED TODAY. UP WITH ASSIST. DISCHARGE APPROVED. DISCHARGE PAPERWORK COMPLETED AND INCLUDED IN DISCHARGE PACKET. IV AND HEART MONITOR REMOVED. PT LEFT WITH MIXER AND BLENDER AT AROUND 1530 TO [facility]. C/O SLIGHT GENERALIZED PAIN. PT TOOK ALL BELONGINGS WITH HER. CALLED TO GIVE REPORT AND WAS TOLD TO LEAVE NAME AND NUMBER. NO CALL BACK OF 1548.
[2019-06-03 05:09] LABS: ADENOVIRUS Negative (Negative); INFLUENZA A Negative (Negative); INFLUENZA B Negative (Negative); METAPNEUMOVIRUS Negative (Negative); PARAINFLUENZA 1 Negative (Negative); PARAINFLUENZA 2 Negative (Negative); PARAINFLUENZA 3 Negative (Negative); RHINOVIRUS Negative (Negative); RSV A Negative (Negative); RSV B Negative (Negative)
== END 2019-06-01 15:30 | DRG 177 ==
LOC: M.ERS 06:02 → M.TBA-ER 07:02 → M.2W 07:02
PROVIDERS: Family Medicine; Internal Medicine; Internal Medicine Pulmonary Disease; Personal Emergency Response Attendant; ADMIT Internal Medicine
DX: J15.6 Pneumonia due to other Gram-negative bacteria (principal); J96.01 Acute respiratory failure with hypoxia; I21.4 Non-ST elevation (NSTEMI) myocardial infarction; J44.1 Chronic obstructive pulmonary disease with (acute) exacerbation; K55.9 Vascular disorder of intestine, unspecified; F41.9 Anxiety disorder, unspecified; F32.9 Major depressive disorder, single episode, unspecified; I48.0 Paroxysmal atrial fibrillation; E87.6 Hypokalemia; E83.42 Hypomagnesemia; I11.0 Hypertensive heart disease with heart failure; I50.9 Heart failure, unspecified; K52.9 Noninfective gastroenteritis and colitis, unspecified; I34.0 Nonrheumatic mitral (valve) insufficiency; K64.8 Other hemorrhoids; Z79.01 Long term (current) use of anticoagulants; Z90.49 Acquired absence of other specified parts of digestive tract; Z90.89 Acquired absence of other organs; Z79.891 Long term (current) use of opiate analgesic; Z79.899 Other long term (current) drug therapy; Z88.1 Allergy status to other antibiotic agents; Z88.0 Allergy status to penicillin; Z88.8 Allergy status to other drugs, medicaments and biological substances; Z87.891 Personal history of nicotine dependence